=== PATIENT | female | born 1950 | race Caucasian/White ===

== ENCOUNTER → 2020-08-07 13:11 | Outpatient (CLI) | payer MEDICARE, SELFPAY ==
--- NOTE | ~2020-08-07 | MM_ITS ---
EXAMINATION: MM screening phil BI w beth HISTORY: Screening mammogram TECHNIQUE: Craniocaudal and mediolateral oblique 3-D tomosynthesis images were obtained and synthetic 2-D images were generated. CAD analysis was submitted and interpreted. COMPARISON: 06/29/2019, 06/17/2018, 06/13/2017, 06/08/2015 bilateral digital screening mammogram examinati ons BREAST PARENCHYMAL COMPOSITION: There are scattered areas of fibroglandular density. FINDINGS: Stable circumscribed soft tissue asymmetry is noted in the outer quadrant of the left breas t, unchanged since 06/08/2015. Occasional bilateral benign calcifications. There is no evidence of elizabeth spicious mass, calcification, or architectural distortion to suggest malignancy in either breast. The re has been no suspicious interval change. IMPRESSION: 1. No mammographic evidence of malignancy. 2. Recommend routine screening mammography in one year. BI-RADS Category 2: Benign finding(s). Reviewed, dictated and finalized at location A.
== END ==
PROVIDERS: PCP Family Medicine; Visit Provider Nurse Practitioner
DX: Z12.31 Encounter for screening mammogram for malignant neoplasm of breast (principal)
CPT/HCPCS: 77063; 77067

== ENCOUNTER → 2020-08-29 09:02 | Outpatient (CLI) | payer MEDICARE, SELFPAY ==
--- NOTE | ~2020-08-29 | CT_ITS ---
EXAMINATION: CT lumbar spine wo con DATE: 08/29/2020 09:42 INDICATION: Lumbar radiculopathy. Degenerative scoliosis. TECHNIQUE: Computed tomography (CT) of the lumbar spine was performed without intravenous contrast. A utomated exposure control and iterative reconstruction technique were employed. The dose-length produ ct was 444.03 mGy-cm. COMPARISON: Lumbar spine MRI 04/28/2019 FINDINGS: There is 18 degrees levoscoliosis of thoracolumbar spine. There is 3 mm retrolisthesis of L 2 on L3 and L5 on S1. Vertebral body heights are normal. There is severely decreased disc height from L1-L2 through L5-S1. There is interbody fusion at L5-S1. 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 The following disc levels are specifically discussed: L1-L2: The disc is bulging. There is severe right and mild left facet joint osteoarthritis. There is mild bilateral neural foraminal stenosis. There is mild central canal stenosis. L2-L3: The disc is bulging. There is moderate right and mild left facet joint osteoarthritis. There i s mild bilateral neural foraminal stenosis. There is mild central canal stenosis. L3-L4: The disc is bulging. There is severe bilateral facet joint osteoarthritis. There is mild bilat eral neural foraminal stenosis. There is mild central canal stenosis. L4-L5: The disc is bulging. There is severe bilateral facet joint osteoarthritis. There is moderate b ilateral neural foraminal stenosis. There is mild central canal stenosis. L5-S1: The disc is bulging. There is severe bilateral facet joint osteoarthritis. There is moderate b ilateral neural foraminal stenosis. There is mild central canal stenosis. IMPRESSION: 1. Severe lumbar spondylosis, stable from 04/28/2019. 2. Thoracolumbar levoscoliosis. Reviewed, dictated and finalized at location A.
--- NOTE | ~2020-08-29 | MR_ITS ---
EXAMINATION: MR lumbar spine wo con DATE: 08/29/2020 10:21 INDICATION: Lumbar radiculopathy. Degenerative scoliosis. TECHNIQUE: Magnetic resonance imaging (MRI) of the lumbar spine was performed without intravenous con trast. Sequences included sagittal T2-weighted FSE, sagittal T2-weighted FS FSE, sagittal T1-weighted FSE, and axial T2-weighted FSE. COMPARISON: Lumbar spine MRI 04/28/2019 FINDINGS: There is 18 degrees levoscoliosis of thoracolumbar spine. There is 3 mm retrolisthesis of L 2 on L3 and L5 on S1. Vertebral body heights are normal. There is severely decreased disc height from L1-L2 through L5-S1. There is Baastrup disease at L3-L4 and L4-L5. The following disc levels are spe cifically discussed: L1-L2: The disc is bulging and has an annular fissure. There is severe right and mild left facet join t osteoarthritis. There is moderate right and mild left neural foraminal stenosis. There is mild cent ral canal stenosis. L2-L3: The disc is bulging and has an annular fissure. There is moderate bilateral facet joint osteoa rthritis. There is moderate right and mild left neural foraminal stenosis. There is mild central lizy l stenosis. L3-L4: The disc is bulging. There is moderate right and severe left facet joint osteoarthritis. There is mild bilateral neural foraminal stenosis. There is mild central canal stenosis. L4-L5: The disc is bulging and has an annular fissure. There is severe bilateral facet joint osteoart hritis. There is moderate bilateral neural foraminal stenosis. There is mild central canal stenosis. L5-S1: The disc is bulging and has an annular fissure. There is severe bilateral facet joint osteoart hritis. There is moderate bilateral neural foraminal stenosis. There is mild central canal stenosis. IMPRESSION: 1. Severe lumbar spondylosis, stable from 04/28/2019. 2. Thoracolumbar levoscoliosis. Reviewed, dictated and finalized at location A.
--- NOTE | ~2020-08-29 | MR_ITS ---
EXAMINATION: MR thoracic spine wo con DATE: 08/29/2020 10:10 INDICATION: Lumbar radiculopathy. Degenerative scoliosis. TECHNIQUE: Magnetic resonance imaging (MRI) of the thoracic spine was performed without intravenous c ontrast. Sagittal localizer T1-weighted FSE of the cervical spine was obtained. Thoracic spine sequen tyree included sagittal T2-weighted FSE, sagittal T1-weighted FSE, sagittal STIR FSE, and axial T2-weig hted FSE. COMPARISON: None FINDINGS: There is 8 degrees dextrocurvature of thoracic spine. There is kyphosis of thoracic spine. There is mild chronic anterior wedging of T4-T8 vertebral bodies. There is severely decreased disc he ight from T4-T5 through T7-T8, moderately decreased disc height at T8-T9, and mildly decreased disc h eight at some other levels. The discs are mildly bulging from T4-T5 through T7-T8 with mild central c anal stenosis. There is severe facet joint osteoarthritis in upper thoracic spine. There is mild bila teral neural foraminal stenosis at T1-T2 and T2-T3. The spinal cord signal intensity is normal. IMPRESSION: 1. Severe thoracic spondylosis. Reviewed, dictated and finalized at location A.
--- NOTE | ~2020-08-29 | CT_ITS ---
EXAMINATION: CT thoracic spine wo con DATE: 08/29/2020 09:42 INDICATION: Lumbar radiculopathy. Degenerative scoliosis. TECHNIQUE: Computed tomography (CT) of the thoracic spine was performed without intravenous contrast. Automated exposure control and iterative reconstruction technique were employed. The dose-length pro duct was 514.25 mGy-cm. COMPARISON: Lumbar spine MRI 04/28/2019 FINDINGS: There is 4 degrees dextrocurvature of thoracic spine. There is chronic anterior wedging of T6, T7, and T8 vertebral bodies. There is severely decreased disc height from T4-T5 through T7-T8, mo derately decreased disc height at T8-T9, and mildly decreased disc height at some other levels. There is multilevel facet joint osteoarthritis, severe in upper thoracic spine. There is mild bilateral ne ural foraminal stenosis at T1-T2 and T2-T3. There is mild central canal stenosis at T6-T7. IMPRESSION: 1. Severe thoracic spondylosis. Reviewed, dictated and finalized at location A.
== END ==
DX: M54.16 Radiculopathy, lumbar region (principal); M41.80 Other forms of scoliosis, site unspecified; M47.816 Spondylosis without myelopathy or radiculopathy, lumbar region
CPT/HCPCS: 72128; 72131; 72146; 72148

== ENCOUNTER → 2020-09-27 16:04 | Outpatient (CLI) | payer MEDICARE, SELFPAY ==
--- NOTE | ~2020-09-27 | XR_ITS ---
EXAMINATION: XR hand RT 2V, XR hand LT 2V DATE: 09/27/2020 16:23 INDICATION: Polyarthralgia at both hands TECHNIQUE: 1. Posteroanterior, oblique and lateral views of the left hand were obtained. 2. Posteroanterior, oblique and lateral views of the right hand were obtained. COMPARISON: None. 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 The most severely affected joints includ e the left first and third metacarpophalangeal, first interphalangeal and the second and fifth distal interphalangeal joints and on the right the second-fifth metacarpophalangeal, first interphalangeal and second distal interphalangeal joints. Mild osteoarthritis at several of the joints at the bilater al wrist and carpus. No fractures. Prominent lytic lesion with thin sclerotic margins at the base of the right ulnar styloid process which could represent either degenerative cystic change or chronic er osion which is in the setting of gout. Chondrocalcinosis at the left cribriform cartilage complex. Pe riarticular soft tissue swelling at many of the metacarpophalangeal and interphalangeal joints. IMPRESSION: 1. 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 Reviewed, dictated and finalized at location A. LLENCE MANAGER IMPRESSION: 1. 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
== END ==
PROVIDERS: Visit Provider Physician Assistant
DX: M19.041 Primary osteoarthritis, right hand (principal); M19.042 Primary osteoarthritis, left hand
CPT/HCPCS: 73120

== ENCOUNTER → 2021-07-19 12:57 | Outpatient (CLI) | payer MEDICARE, SELFPAY ==
--- NOTE | ~2021-07-19 | MR_ITS ---
EXAMINATION: MR cervical spine wo con DATE: 07/19/2021 13:51 INDICATION: Cervical disc disease with myelopathy. TECHNIQUE: Magnetic resonance imaging (MRI) of the cervical spine was performed without intravenous c ontrast. Sequences included sagittal T2-weighted FSE, sagittal STIR FSE, sagittal T1-weighted FSE, ax ial MERGE, and axial T2-weighted FSE. COMPARISON: None FINDINGS: There is 4 degrees levocurvature of cervical spine. There is 2 mm anterolisthesis of C4 on C5, 2 mm retrolisthesis of C5 on C6, and 2 mm anterolisthesis of C7 on T1. Vertebral body heights are normal. There is moderately decreased disc height at C2-C3, mildly decreased disc height at C3-C4, a nd severely decreased disc height from C4-C5 through C6-C7 with endplate remodeling. The spinal cord signal intensity is normal. The following disc levels are specifically discussed: C2-C3: The disc does not extend beyond the endplate margin. There is mild left uncovertebral joint os teoarthritis. There is moderate bilateral facet joint osteoarthritis. There is no neural foraminal st enosis. There is no central canal stenosis. C3-C4: There is a central protrusion. There is moderate right and mild left uncovertebral joint osteo arthritis. There is severe bilateral facet joint osteoarthritis. There is moderate right and mild lef t neural foraminal stenosis. There is no central canal stenosis. C4-C5: The disc is bulging. There is moderate right and severe left uncovertebral joint osteoarthriti s. There is severe bilateral facet joint osteoarthritis. There is moderate bilateral neural foraminal stenosis. There is mild central canal stenosis with ventral indentation of the spinal cord. C5-C6: The disc is bulging. There is severe bilateral uncovertebral joint osteoarthritis. There is se adelita right and moderate left facet joint osteoarthritis. There is mild bilateral neural foraminal jermain nosis. There is mild central canal stenosis. C6-C7: The disc is bulging. There is severe bilateral uncovertebral joint osteoarthritis. There is se adelita bilateral facet joint osteoarthritis. There is mild bilateral neural foraminal stenosis. There i s mild central canal stenosis. C7-T1: The disc does not extend beyond the endplate margin. There is no uncovertebral joint osteoarth ritis. There is severe bilateral facet joint osteoarthritis. There is mild bilateral neural foraminal stenosis. There is no central canal stenosis. IMPRESSION: 1. Severe cervical spondylosis. Reviewed, dictated and finalized at location A.
== END ==
PROVIDERS: PCP Family Medicine
DX: M50.00 Cervical disc disorder with myelopathy, unspecified cervical region (principal); M47.13 Other spondylosis with myelopathy, cervicothoracic region; M48.03 Spinal stenosis, cervicothoracic region
CPT/HCPCS: 72141

== ENCOUNTER → 2021-08-16 10:32 | Outpatient (CLI) | payer MEDICARE, SELFPAY ==
--- NOTE | ~2021-08-16 | MM_ITS ---
EXAMINATION: MM screening [facility] BI w beth HISTORY: Screening TECHNIQUE: Craniocaudal and mediolateral oblique 3-D tomosynthesis images were obtained and synthetic 2-D images were generated. CAD analysis was submitted and interpreted. COMPARISON: Comparison to multiple prior studies sequentially, with oldest reviewed study dated 06/11. BREAST PARENCHYMAL COMPOSITION: There are scattered areas of fibroglandular density. FINDINGS: There is no evidence of suspicious mass, calcification, or architectural distortion to sugg est malignancy in either breast. There has been no suspicious interval change. IMPRESSION: 1. No mammographic evidence of malignancy. 2. Recommend routine screening mammography in one year. BI-RADS Category 1: Negative Reviewed, dictated and finalized at location A.
== END ==
PROVIDERS: PCP Family Medicine; Visit Provider Nurse Practitioner
DX: Z12.31 Encounter for screening mammogram for malignant neoplasm of breast (principal)
CPT/HCPCS: 77063; 77067

== ENCOUNTER → 2021-10-22 08:34 | Outpatient (CLI) | payer MEDICARE, SELFPAY ==
--- NOTE | ~2021-10-22 | MR_ITS ---
EXAMINATION: MR thoracic spine wo con DATE: 10/22/2021 10:49 INDICATION: Left lower limb weakness. TECHNIQUE: Magnetic resonance imaging (MRI) of the thoracic spine was performed without intravenous c ontrast. Sagittal localizer T1-weighted FSE of the cervicothoracic spine was obtained. Thoracic spine sequences included sagittal T2-weighted FSE, sagittal T1-weighted SE, Sagittal T2-weighted FS FSE, a nd axial T2-weighted FSE. COMPARISON: 08/29/2020 FINDINGS: Again seen is a mild thoracic dextrocurvature. Mid thoracic kyphosis with chronic minimal to mild ant erior wedging of T4-T8. Focus of low signal intensity susceptibility artifact likely related to gas w ithin a Schmorl's node at T7. Marrow signal is otherwise normal. Severe disc height loss at T4-T5 thr ough T7-T8 moderate disc height loss at T8-T9. Mild disc height loss at T1-T2 through T3-T4 and atT8- T9. This are mildly bulging from T1 to T2 through T9-T10 with only negligible central canal stenosis. Multilevel thoracic facet osteoarthritis, severe at the upper thoracic spine transition to mild in t he lower thoracic spine. Mild bilateral neural foraminal stenosis bilaterally at T1-T2 and on the lef t at T2-T3. There is normal spinal cord signal. The conus terminates at L1. Postoperative changes in the lumbar spine with bilateral vertical maine and pedicle screw fixation beginning at L1 and extending caudally through the sacrum along with bilateral iliac screws seen on the transportation aid localizer images. Th ere is a mild thoracolumbar levoscoliosis. There is a posterior paraspinal fluid collection which cou ld represent a seroma or abscess in the appropriate clinical setting. 2 cm left renal cyst. IMPRESSION: 1. No significant change in severe midthoracic spondylosis. 2. Postoperative change of recent lumbar posterior spinal fusion extending from L1 through the sacrum and ilium. A large posterior paraspinal fluid collection could represent a hematoma/seroma or absces s in the appropriate clinical setting. Reviewed, dictated and finalized at location B. SPRING BARREL ASSEMBLY CLEANER IMPRESSION: 1. No significant change in severe midthoracic spondylosis. 2. Postoperative change of recent lumbar posterior spinal fusion extending from L1 through the sacrum and ilium. A large posterior paraspinal fluid collection could represent a hematoma/seroma or abscess in the appropriate clinical setti ng.
--- NOTE | ~2021-10-22 | MR_ITS ---
EXAMINATION: MR brain/brain stem wo con DATE: 10/22/2021 10:48 INDICATION: Other symptoms and signs involving the musculoskeletal system. Leg weakness. TECHNIQUE: Magnetic resonance imaging (MRI) of the brain and brainstem was performed without intraven ous contrast. Sequences included sagittal and axial T1-weighted FSE, axial diffusion-weighted FS EPI, axial T2*-weighted GRE, axial T2-weighted FLAIR Propeller, and axial T2-weighted Propeller. Apparent diffusion coefficient (ADC) maps were created. COMPARISON: None. FINDINGS: There are scattered areas of nonspecific increased T2-weighted signal intensity in the cere bral white matter and imelda, which is within normal limits for the patient's age. There is an old infa rct in right thalamus. There are small areas of chronic cystic encephalomalacia in the right frontal lobe periventricular white matter. There is no intracranial hemorrhage, acute infarction, or abnormal intracranial mass lesion. The ventricles are normal in size. There are likely changes of ocular lens replacement surgeries. The mastoid air cells are normal. There is mild mucosal thickening in the eth moid sinuses. IMPRESSION: 1. 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 Small areas of chronic cystic encephalomalacia in the right frontal lobe periventricular white matter. 2. Mild nonspecific cerebral white matter disease and pontine disease, which likely represents chroni c small vessel ischemic disease. Reviewed, dictated and finalized at location A. NT RELATION SPECIALIST IMPRESSION: 1. 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 Small areas of chronic cystic encephalomalaci a in the right frontal lobe periventricular white matter. 2. Mild nonspecific cerebral white matter disease and pontine disease, which abel gerard represents chronic small vessel ischemic disease.
--- NOTE | ~2021-10-22 | MR_ITS ---
EXAMINATION: MR cervical spine wo con DATE: 10/22/2021 10:49 INDICATION: Left lower extremity weakness. TECHNIQUE: Magnetic resonance imaging (MRI) of the cervical spine was performed without intravenous c ontrast. Sequences included sagittal T2-weighted FSE, sagittal T2-weighted FS FSE, sagittal T1-weight ed FSE, axial MERGE and axial T2-weighted FSE. COMPARISON: 07/19/2021 FINDINGS: Minimal cervical levocurvature. Unchanged 2 mm anterolisthesis C4 on C5 and C7 on T1, 2.5 mm retrolis thesis C5 on C6 and 1 mm retrolisthesis C6 on C7. Vertebral body heights are normal. Bone marrow si gnal intensity is normal. Severe disc height loss with degenerative endplate changes at C4-C5, C5-C6 and C6-C7, moderate disc height loss at C2-C3 and mild disc height loss at C3-C4. Cord signal intensi ty is normal. Cervical soft tissues are unremarkable. The following disc levels are specifically disc ussed: C2-C3: The disc does not extend beyond the endplate margin. There is mild left uncovertebral joint os teoarthritis. There is moderate bilateral facet joint osteoarthritis. There is no neural foraminal st enosis. There is no central canal stenosis. C3-C4: Unchanged small central disc protrusion. There is mild left and moderate right uncovertebral j oint osteoarthritis. There is severe bilateral facet joint osteoarthritis. There is moderate right an d mild left neural foraminal stenosis. There is no central canal stenosis. C4-C5: Disc is bulging. There is moderate right and severe left uncovertebral joint osteoarthritis. T here is severe bilateral facet joint osteoarthritis. There is moderate bilateral, left greater than r ight neural foraminal stenosis. There is mild central canal stenosis with flattening of the ventral s urface of the cord. C5-C6: Disc is bulging. There is severe bilateral uncovertebral joint osteoarthritis. There is modera te left and severe right facet joint osteoarthritis. There is moderate bilateral neural foraminal jermain nosis. There is mild central canal stenosis with flattening of the ventral surface of the cord. C6-C7: Disc is bulging. There is severe bilateral uncovertebral joint osteoarthritis. There is severe left and moderate right facet joint osteoarthritis. There is mild bilateral neural foraminal stenosi s. There is mild central canal stenosis. C7-T1: The disc does not extend beyond the endplate margin. There is no uncovertebral joint osteoarth ritis. There is severe bilateral facet joint osteoarthritis. There is mild bilateral neural foraminal stenosis. There is no central canal stenosis. IMPRESSION: 1. Severe cervical spondylosis with no significant interval change. Reviewed, dictated and finalized at location B. MAKER
[2021-10-22 09:34] LABS: Estimated Glomerular Filt Rate 34
== END ==
PROVIDERS: PCP Family Medicine
DX: R29.898 Other symptoms and signs involving the musculoskeletal system (principal); R93.0 Abnormal findings on diagnostic imaging of skull and head, not elsewhere classified; Z98.1 Arthrodesis status; M47.892 Other spondylosis, cervical region
CPT/HCPCS: 70551; 72141; 72146

== ENCOUNTER → 2022-11-12 11:11 | Outpatient (CLI) | payer MEDICARE, SELFPAY ==
--- NOTE | ~2022-11-12 | MM_ITS ---
EXAMINATION: MM screening phil BI w beth HISTORY: Screening mammogram TECHNIQUE: Craniocaudal and mediolateral oblique 3-D tomosynthesis images were obtained and synthetic 2-D images were generated. CAD analysis was submitted and interpreted. COMPARISON: No prior mammogram is available for comparison at this institution. BREAST PARENCHYMAL COMPOSITION: There are scattered areas of fibroglandular density. FINDINGS: An approximately 2.1 x 2.5 cm circumscribed low-density opacity with halo in the upper oute r left breast, likely a benign cyst Occasional scattered bilateral benign breast calcifications. There is no evidence of suspicious mass, calcification, or architectural distortion to suggest malignancy in either breast. There has been no suspicious interval change. IMPRESSION: 1. No mammographic evidence of malignancy. 2. Recommend routine screening mammography in one year. BI-RADS Category 2: Benign finding(s). Reviewed, dictated and finalized at location A. ACE GRINDER TENDER
== END ==
PROVIDERS: PCP Physician Assistant; Visit Provider Nurse Practitioner
DX: Z12.31 Encounter for screening mammogram for malignant neoplasm of breast (principal)
CPT/HCPCS: 77063; 77067

== ENCOUNTER 2023-02-21 00:32 | Day surgery (SDC) | payer MEDICARE, SELFPAY ==
[2023-02-17 13:10] VITALS: BMI 19.5
[2023-02-21 11:50] VITALS: BP 155/112; PULSE 113; RESP 17; TEMP 36.1; O2SAT 98
[2023-02-21] MEDS: LACTATED RINGERS 1,000 ML 150 ML IV CONT (12:00)
--- NOTE | 2023-02-21 12:07 | WPDANESEPPF ---
Anes - Initial Pre Proc Eval Procedure: Operation Date: 02/21/23 12:30 Proposed Procedures p Esophagogastroduodenoscopy - Archie Anderson MD Date/Time: 02/21/23 12:07 Surgeon: Archie Anderson MD Pre Op Diagnosis: dysphagia Patient Data Age: 72 Gender: F Height: 1.6 m Weight: 48.9 kg Last Vital Signs Temp 97 F L 02/21/23 11:50 Pulse 113 H 02/21/23 11:50 Resp 17 02/21/23 11:50 BP 155/112 H 02/21/23 11:50 Pulse Ox 98 02/21/23 11:50 O2 Del Method Room Air 02/21/23 11:50 Allergies Allergy/AdvReac Type Severity Reaction Status Date / Time apremilast [From Otezla] Allergy Rash Verified 02/21/23 11:46 Home Medications Medication Instructions Recorded Confirmed Type aspirin 81 mg tablet,delayed 81 mg PO DAILY 02/12/23 02/17/23 History release clarithromycin 500 mg tablet 500 mg PO Q12H 02/12/23 02/17/23 History famotidine 40 mg tablet 20 mg PO BID 02/12/23 02/17/23 History folic acid 1 mg tablet 1 mg PO DAILY 02/12/23 02/17/23 History hydrochlorothiazide 12.5 mg capsule 12.5 mg PO DAILY 02/12/23 02/17/23 History multivitamin 1 tablet PO DAILY 02/12/23 02/17/23 History pravastatin 40 mg tablet 40 mg PO DAILY 02/12/23 02/17/23 History prednisone 5 mg tablet 5 mg PO DAILY 02/12/23 02/17/23 History tizanidine 4 mg capsule 8 mg PO QHS 02/12/23 02/17/23 History tramadol 50 mg tablet 200 mg PO DAILY PRN Pain 02/12/23 02/17/23 History acetaminophen 500 mg tablet 500 mg PO Q6H PRN Pain 02/17/23 02/17/23 History calcium 500 mg tablet 500 mg PO DAILY 02/17/23 02/17/23 History omega 2-otq-abg-fish oil 900 1 cap PO DAILY 02/17/23 02/17/23 History mg-1,400 mg capsule,delayed release sulfamethoxazole 800 1 tablet PO BID 02/17/23 02/17/23 History mg-trimethoprim 160 mg tablet Patient hx anesthesia problems: none Family hx anesthesia problems: none Results Review: All pre-operative results and documents have been reviewed as part of the pre-operative evaluation. [facility] Past Medical History Medical History Arthritis Hypertension Surgical History Surgical History History of back surgery Family History Family History Mother Heart disease Hypertension Social History Social History Smoking status: Never smoker Alcohol intake: never Substance use: never Substance use type: does not use Living arrangements: with family Spiritual care concerns: No Anes - Eval Final PreProcedure Day of Procedure 02/21/23 12:07 Patient weight: normal Heart: regular rate and rhythm Lungs: clear to auscultation Airway: Mallampati scale class II Neurological: alert and oriented Last oral intake: >/= 8 hours ASA classification: III Emergent: no Anesthetic plan: proceed Anesthesia type and monitoring: general GIVS and standard monitoring Results Review: All pre-operative results and documents have been reviewed as part of the pre-operative evaluation. Informed Consent: The patient's anesthetic plan and its attendant risks and benefits were discussed with the patient/family/POA. Questions were solicited and answers provided to the satisfaction of the patient/family/POA.
--- NOTE | 2023-02-21 12:11 | WPDHPUPDATE1 ---
History and Physical Update Update Date/Time: 02/21/23 12:11 History and Physical has been reviewed, including an updated exam of the patient. There are NO changes in the patient's condition. Risks, benefits, and alternatives have been discussed and questions answered. Patient agrees to proceed with procedure.
[2023-02-21 12:55] VITALS: BP 155/101; PULSE 86; RESP 19; O2SAT 100
[2023-02-21 13:05] VITALS: BP 167/99; PULSE 85; RESP 20; O2SAT 100
[2023-02-21 13:15] VITALS: BP 160/99; PULSE 87; RESP 20; O2SAT 100
== END 2023-02-21 13:25 | disposition home or self-care (01) ==
PROVIDERS: PCP Physician Assistant; Visit Provider Internal Medicine Gastroenterology
PROC: 0DJ08ZZ Inspection of Upper Intestinal Tract, Via Natural or Artificial Opening Endoscopic (ICD-10-PCS; CPT 43235; principal; 2023-02-21 12:30)
DX: K25.3 Acute gastric ulcer without hemorrhage or perforation (principal); R13.10 Dysphagia, unspecified; I10 Essential (primary) hypertension; Z79.82 Long term (current) use of aspirin
CPT/HCPCS: 43239; 43450; 88305; 88342; J2704; J7120

== ENCOUNTER → 2023-11-14 11:47 | Outpatient (CLI) | payer MEDICARE, SELFPAY ==
--- NOTE | ~2023-11-14 | MM_ITS ---
EXAMINATION: MM screening phil BI w beth HISTORY: Screening mammogram TECHNIQUE: Craniocaudal and mediolateral oblique 3-D tomosynthesis images were obtained and synthetic 2-D images were generated. CAD analysis was submitted and interpreted. COMPARISON: 11/12/2022, 08/16/2021, 08/07/2020, 06/29/2019, 06/08/2015 bilateral screening mammogram exam inations BREAST PARENCHYMAL COMPOSITION: There are scattered areas of fibroglandular density. FINDINGS: Chronic stable fibroglandular asymmetry. Scattered bilateral benign calcifications. There i s no evidence of suspicious mass, calcification, or architectural distortion to suggest malignancy in either breast. There has been no suspicious interval change. IMPRESSION: 1. No mammographic evidence of malignancy. 2. Recommend routine screening mammography in one year. BI-RADS Category 2: Benign finding(s). Reviewed, dictated and finalized at location [facility]
== END ==
PROVIDERS: PCP Physician Assistant; Visit Provider Nurse Practitioner
DX: Z12.31 Encounter for screening mammogram for malignant neoplasm of breast (principal)
CPT/HCPCS: 77063; 77067

== ENCOUNTER 2023-12-20 08:33 | Emergency (ER) | payer MEDICARE, SELFPAY ==
[2023-12-20 08:48] VITALS: BP 147/78; PULSE 89; RESP 18; TEMP 36.8; O2SAT 97
--- NOTE | 2023-12-20 09:05 | ED.URI ---
HPI - URI/Sore Throat General Chief Complaint: Upper Respiratory Infection Stated Complaint: cold symptoms,bilateral ear pain Time Seen by Provider: 12/20/23 08:50 Source: patient and RN notes reviewed Mode of arrival: ambulatory Limitations: no limitations History of Present Illness HPI Narrative: Patient presents today complaining of a 3 day history of cough, bilateral ear pain, and sore throat. She currently rates her pain 7/10 and has been taking Coricidin HBP with some relief. Related Data Home Medications Medication Instructions Recorded Confirmed aspirin 81 mg tablet,delayed 81 mg PO DAILY 02/12/23 12/20/23 release folic acid 1 mg tablet 1 mg PO DAILY 02/12/23 12/20/23 multivitamin 1 tablet PO DAILY 02/12/23 12/20/23 pravastatin 40 mg tablet 40 mg PO DAILY 02/12/23 12/20/23 prednisone 5 mg tablet 5 mg PO DAILY 02/12/23 12/20/23 tizanidine 4 mg capsule 8 mg PO QHS 02/12/23 12/20/23 tramadol 50 mg tablet 200 mg PO DAILY PRN Pain 02/12/23 12/20/23 acetaminophen 500 mg tablet 500 mg PO Q6H PRN Pain 02/17/23 12/20/23 calcium 500 mg tablet 500 mg PO DAILY 02/17/23 12/20/23 omega 1-gtf-vle-fish oil 900 1 cap PO DAILY 02/17/23 12/20/23 mg-1,400 mg capsule,delayed release alendronate 70 mg tablet 70 mg PO DIRECTED 12/20/23 12/20/23 methotrexate sodium 2.5 mg tablet 2.5 mg DIRECTED 12/20/23 12/20/23 Allergies Allergy/AdvReac Type Severity Reaction Status Date / Time apremilast [From [facility]] Allergy Rash Verified 12/20/23 08:52 Review of Systems Review of Systems: CONSTITUTIONAL: Denies body aches, fever, chills, or sweats. EYES: Denies visual changes, redness, or discharge. ENT: Denies rhinorrhea, congestion.+ bilateral ear pain, sore throat CARDIOVASCULAR: Denies chest pain, palpitations, or edema. RESPIRATORY: Denies dyspnea.+ cough GASTROINTESTINAL: Denies abdominal pain, nausea, vomiting, or diarrhea. GENITOURINARY: Denies dysuria or hematuria. SKIN: Denies rash, itching, or wounds. MUSCULOSKELETAL: Denies back pain, joint pain, or myalgia. NEUROLOGIC: Denies headache, numbness, tingling, or weakness. PSYCH: Denies depression or anxiety. [facility] Past Medical History Medical History Arthritis Hypertension Surgical History Surgical History History of back surgery Family History Family History Mother Heart disease Hypertension Social History Social History Smoking status: Never smoker Alcohol intake: never Substance use: never Substance use type: does not use Living arrangements: with family Spiritual care concerns: No Comments At time of signature, I have reviewed and agree with nursing past medical, surgical, social and family history unless otherwise noted. Please see nursing chart for further information. There is no relevant family history pertinent to the presenting complaint Exam Narrative: GENERAL: Well-appearing, well-nourished, and in no acute distress. HEAD: Normocephalic, atraumatic. EYES: EOMI. No redness or drainage. Conjunctivae normal. ENT: Mucous membranes pink and moist. Nares clear. No rhinorrhea. TMs normal bilaterally. Throat erythematous, mildly edematous with small superficial ulcerations to the soft palate. Uvula midline. Voice is hoarse NECK: Normal AROM. Supple. No lymphadenopathy. CHEST: No respiratory distress. Clear to auscultation. HEART: Regular rate and rhythm. No murmur appreciated. EXTREMITIES: Normal range of motion. No edema. SKIN: Warm, dry, no rash. Capillary refill normal. Normal skin turgor. NEURO: No focal deficits. Alert and oriented x3. Gait steady. PSYCH: Normal affect. No signs of depression or anxiety. Course Course Level of Care: Express Care Visit Vital Signs Vital
== END 2023-12-20 09:30 | disposition home or self-care (01) ==
PROVIDERS: Emergency Provider Nurse Practitioner; PCP Physician Assistant
DX: J02.9 Acute pharyngitis, unspecified (principal); M19.90 Unspecified osteoarthritis, unspecified site; I10 Essential (primary) hypertension
CPT/HCPCS: 87081; 87880; 99213; G0463

== ENCOUNTER 2025-01-13 10:33 | Outpatient (CLI) | payer MEDICARE, SELFPAY | END 2025-01-13 10:34 | disposition home or self-care (01) | LOC: MICIMG 10:34 | PROVIDERS: PCP Physician Assistant; Visit Provider Nurse Practitioner | DX: Z12.31 Encounter for screening mammogram for malignant neoplasm of breast (principal) | CPT/HCPCS: 77063; 77067 ==